=== PATIENT | male | born 1955 | race Caucasian/White ===

== ENCOUNTER 2023-08-02 09:57 | Day surgery (SDC) | payer OTHER ==
[2023-07-31 11:58] LABS: Potassium 4.2 mEq/L (3.5-5.1)
[2023-08-02] MEDS: Ringers Lactate 1,000 ML IV ONE ×2 (10:25→11:58)
[2023-08-02] MEDS ORDERED: propofoL 200 MG/20 ML VIAL IV ONE ×2 (11:51→12:59)
[2023-08-02] MEDS ORDERED: LIDOCAINE 1% MPF 5 ML VIAL ONE (11:51)
[2023-08-02 14:07] VITALS: BP 123/64; TEMP 97.6; O2SAT 99
--- NOTE | 2023-08-02 15:15 | EKG ---
Test Date: 2023-07-31 Test Time: 12:19:14 [employer] Operator: MARTHA MEASUREMENT RESULTS: Intervals: Rate: 68 ME: 124 QRSD: 84 QT: 374 QTc: 397 Tamms: P: 79 ME: 124 QRS: -20 T: 19 INTERPRETIVE STATEMENTS: Normal sinus rhythm with sinus arrhythmia Nonspecific ST abnormality Abnormal ECG No previous ECG available for comparison Electronically Signed On 08-02-23 15:10:11 ADMINISTRATIVE TECH by Durga Lagunas
== END 2023-08-02 14:19 | disposition home or self-care (01) ==
LOC: OR 09:57
PROVIDERS: ATTEND Surgery
PROC: 0DBN8ZX Excision of Sigmoid Colon, Via Natural or Artificial Opening Endoscopic, Diagnostic (ICD-10-PCS; 2023-08-02)
PROC: 0DBH8ZX Excision of Cecum, Via Natural or Artificial Opening Endoscopic, Diagnostic (ICD-10-PCS; principal; 2023-08-02 10:30)
DX: Z12.11 Encounter for screening for malignant neoplasm of colon (principal); K57.30 Diverticulosis of large intestine without perforation or abscess without bleeding; K64.8 Other hemorrhoids; D12.5 Benign neoplasm of sigmoid colon; K63.5 Polyp of colon
CPT/HCPCS: 93005; 80048; 36415; 88305; 45385; J2704 ×2; J2001; J7120; 88304